=== PATIENT | female | born 1955 | race Two or more races ===

== ENCOUNTER 2016-04-07 16:25 | Emergency (ER) | payer MEDICAID ==
[~2016-04-07] VITALS: Ht 162.6 cm; Wt 73.9 kg
[2016-04-07 16:43] VITALS: BP 133/78
== END 2016-04-07 19:17 | disposition home or self-care (01) ==
LOC: ER 16:30
DX: M25.512 Pain in left shoulder (principal); I10 Essential (primary) hypertension
CPT/HCPCS: 93971-TC; A4606; Z7610

== ENCOUNTER 2016-07-05 07:28 | Emergency (ER) | payer OTHER ==
[~2016-07-05] VITALS: Ht 162.6 cm; Wt 70.3 kg
--- NOTE | 2016-07-05 07:28 | NUR ---
Presents self to ed for fever, cough and nasal congestion x 3 days. Patient is aao3,. appears in no acute distress.Respiration even and unlabored. NO chest pain. Skin is warm to touch and non diaphoretic. Afebrile. vscameron Metcalf at bs
[2016-07-05] MEDS ORDERED: ALBUTEROL FS 2.5 MG/3 ML VIAL.NEB ONE (07:48)
[2016-07-05] MEDS ORDERED: IPRATROPIUM NEB FS 0.5 MG/2.5 ML AMPUL.NEB ONE (07:48)
[2016-07-05] MEDS ORDERED: GUAIFENESIN/D-METHORPHAN HB 5 ML UDC ONE ×2 (07:54→08:00)
[2016-07-05] MEDS ORDERED: IPRATROPIUM NEB FS 0.5 MG/2.5 ML AMPUL.NEB NEB ONE (08:00)
[2016-07-05] MEDS ORDERED: GUAIFENESIN/D-METHORPHAN HB 5 ML UDC PO ONE (08:00)
[2016-07-05] MEDS ORDERED: ALBUTEROL FS 2.5 MG/3 ML VIAL.NEB NEB ONE (08:00)
--- NOTE | 2016-07-05 08:00 | NUR ---
rt atbs for breathing treatment
--- NOTE | 2016-07-05 08:04 | NUR ---
MEDICATED PATIENT ORDERED
--- NOTE | 2016-07-05 08:05 | NUR ---
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
--- NOTE | 2016-07-05 08:50 | NUR ---
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 Spoke with Shayy
[2016-07-05] MEDS ORDERED: predniSONE 20 MG TABLET ONE (08:55)
[2016-07-05] MEDS ORDERED: predniSONE 20 MG TABLET PO ONE (09:00)
[2016-07-05 09:06] VITALS: BP 123/94
--- NOTE | 2016-07-05 09:06 | NUR ---
Patient discharged to home in stable condition. Written and verbal after care instructions given. Patient verbalizes understanding of instruction.
== END 2016-07-05 09:07 | disposition home or self-care (01) ==
LOC: ER 07:30
DX: J20.9 Acute bronchitis, unspecified (principal); E78.00 Pure hypercholesterolemia, unspecified
CPT/HCPCS: 71010-TC; A4606; Z7610

== ENCOUNTER 2019-06-23 10:00 | Emergency (ER) | payer MEDICAID ==
[~2019-06-23] VITALS: Ht 167.6 cm; Wt 75.7 kg
--- NOTE | 2019-06-23 10:40 | NUR ---
PT. VERBALIZED UNDERSTANDING OF AFTERCARE INSTRUCTIONS.Patient discharged to home in stable condition. Written and verbal after care instructions given. Patient verbalizes understanding of instruction.
[2019-06-23 10:41] VITALS: BP 162/79
== END 2019-06-23 10:41 | disposition home or self-care (01) ==
LOC: ER 10:10
DX: J20.9 Acute bronchitis, unspecified (principal); E78.00 Pure hypercholesterolemia, unspecified; Z98.890 Other specified postprocedural states

== ENCOUNTER 2022-02-13 17:35 | Emergency (ER) | payer MEDICARE, OTHER ==
[~2022-02-13] VITALS: Ht 160 cm; Wt 83.9 kg
[2022-02-13 17:51] VITALS: BP 157/71
[2022-02-13] MEDS ORDERED: GUAIFENESIN/D-METHORPHAN HB 5 ML UDC ONE (18:27)
[2022-02-13] MEDS ORDERED: ACETAMINOPHEN 325 MG TABLET ONE (18:28)
[2022-02-13] MEDS ORDERED: ACETAMINOPHEN 325 MG TABLET PO ONE (18:30)
[2022-02-13] MEDS ORDERED: GUAIFENESIN/D-METHORPHAN HB 5 ML UDC PO ONE (18:30)
[2022-02-13] MEDS ORDERED: OSEL75CA18 PO (19:34)
[2022-02-13] MEDS ORDERED: ACET650T10 PO (19:34)
[2022-02-13] MEDS ORDERED: GUAI5SYR4 GT (19:34)
--- NOTE | 2022-02-13 19:41 | NUR ---
COVID AND FLU SWAB COLLECTED
--- NOTE | 2022-02-13 20:00 | NUR ---
Patient discharged to home in stable condition. Written and verbal after care instructions given. Patient verbalizes understanding of instruction.
== END 2022-02-13 20:12 | disposition home or self-care (01) ==
LOC: ER 17:37
DX: B34.9 Viral infection, unspecified (principal); R52 Pain, unspecified; Z20.822 Contact with and (suspected) exposure to COVID-19; R73.03 Prediabetes; E78.00 Pure hypercholesterolemia, unspecified
CPT/HCPCS: 71045-TC; C9803

== ENCOUNTER 2024-04-19 16:25 | Emergency (ER) | payer OTHER, BC ==
[~2024-04-19] VITALS: Ht 162.6 cm; Wt 65.8 kg
[~2024-04-19 16:25] MED LIST: ACET650T10 PO; GUAI5SYR4 GT; OSEL75CA18 PO
[2024-04-19 16:52] VITALS: TEMP 98.7
[2024-04-19] MEDS ORDERED: ACETAMINOPHEN ES 500 MG TABLET ONE (16:59)
[2024-04-19] MEDS: ACETAMINOPHEN ES 500 MG TABLET PO ONE (17:01)
[2024-04-19 18:43] VITALS: BP 127/85; O2SAT 97
== END 2024-04-19 18:43 | disposition home or self-care (01) ==
LOC: ER 16:25
DX: S13.4XXA Sprain of ligaments of cervical spine, initial encounter (principal); S50.02XA Contusion of left elbow, initial encounter; M79.602 Pain in left arm; E78.00 Pure hypercholesterolemia, unspecified; V43.62XA Car passenger injured in collision with other type car in traffic accident, initial encounter; Y93.89 Activity, other specified; Y92.488 Other paved roadways as the place of occurrence of the external cause; Y99.8 Other external cause status
CPT/HCPCS: 73080-TC